=== PATIENT | female | born 1985 | race Caucasian/White ===

== ENCOUNTER 2021-04-05 11:07 | Emergency (ER) | payer MEDICARE, OTHER ==
[~2021-04-05 11:07] MED LIST: BACTROBAN OINT22 GM EXT; BENADRYL 25MG C25 MG PO; BENTYL 10MG CAP10 MG PO; BENTYL 20MG TAB20 MG PO; BUTALB-ACETAMI1 EAC1 PO; CITRATE OF MAG296 ML PO; CITROMA296 ML PO; COLACE 100MG C100 MG PO; CYANOCOBAL1000 MCG/1 INJ; CYCLOBENZAPRINE10 MG PO; CYMBALTA60 MG PO; DEPAKOTE500 MG PO; DETROL LA2 MG PO; EFFEXOR XR75 MG PO; EMGALITY120 MG/1 M SQ; GLUCOPHAGE XR500 M1 PO; GUAIFENESIN DM1 EACH PO; IMODIUM CAP 2 MG2 MG PO; INDERAL TAB 1010 MG PO; LISINOPRIL30 MG PO; LYRICA300 MG PO; MAXALT10 MG PO; MEDROL DOSEPAK 24 MG PO; MEDROL4 MG PO; MIRALAX17 GM PO; PEPCID20 MG PO; PROVENTIL HFA6.7 GM INH; RANITIDINE HCL300 M1 PO; REMERON 15 MG T15 MG PO; REQUIP0.25 MG PO; ROBAXIN 750 MG750 MG PO; SINGULAIR10 MG PO; VALTREX1000 MG PO; VISINE TOTALITY15 ML EYERT; VISTARIL25 MG PO; Viscous lidocaine2% TOP; Voltaren Gel 1 % TOP; ZOFRAN ODT 4 MG4 MG PO; ZOFRAN4 MG PO
[2021-04-05 13:00] LABS: HEMOGLOBIN 9.5 gm/dl (12.3-15.3); RED BLOOD COUNT 4.21 M/UL (4.00-5.10); WHITE BLOOD COUNT 6.7 K/UL (4.5-11.0)
[2021-04-05 15:20] LABS: BUN/CREATININE RATIO 16 (0-10)
== END 2021-04-05 15:43 | disposition home or self-care (01) ==
LOC: ER1 11:07
PROVIDERS: Physician Assistant
DX: R51.9 Headache, unspecified (principal); R42 Dizziness and giddiness; D64.9 Anemia, unspecified; I48.91 Unspecified atrial fibrillation; E11.9 Type 2 diabetes mellitus without complications; F17.210 Nicotine dependence, cigarettes, uncomplicated; Z90.49 Acquired absence of other specified parts of digestive tract
CPT/HCPCS: 80053; 81001; 82550; 82553; 83874; 84484; 85025; 93005; 96372; 99284; J3030

== ENCOUNTER 2021-04-25 11:45 | Emergency (ER) | payer MEDICARE, OTHER ==
[2021-04-25 14:33] LABS: HEMOGLOBIN 11.1 gm/dl (12.3-15.3); RED BLOOD COUNT 4.82 M/UL (4.00-5.10); WHITE BLOOD COUNT 8.2 K/UL (4.5-11.0)
[2021-04-25 14:39] LABS: BUN/CREATININE RATIO 11 (0-10)
== END 2021-04-25 16:37 | disposition home or self-care (01) ==
LOC: ER1 11:45
PROVIDERS: Physician Assistant
DX: R06.2 Wheezing (principal); R10.31 Right lower quadrant pain; J44.9 Chronic obstructive pulmonary disease, unspecified; E11.40 Type 2 diabetes mellitus with diabetic neuropathy, unspecified; Z90.49 Acquired absence of other specified parts of digestive tract; Z88.1 Allergy status to other antibiotic agents; Z88.6 Allergy status to analgesic agent; Z88.8 Allergy status to other drugs, medicaments and biological substances; Z79.899 Other long term (current) drug therapy
CPT/HCPCS: 36415; 80053; 81001; 84703; 85025; 99285

== ENCOUNTER 2021-05-06 11:42 | Emergency (ER) | payer MEDICARE, OTHER | END 2021-05-06 15:21 | disposition home or self-care (01) | LOC: ER1 11:42 | DX: T78.40XA Allergy, unspecified, initial encounter (principal) | CPT/HCPCS: 96372; 99283; J2270; J2550 ==

== ENCOUNTER 2021-05-10 13:15 | Emergency (ER) | payer MEDICARE, OTHER ==
[2021-05-10 13:41] LABS: HEMOGLOBIN 13.3 gm/dl (12.3-15.3); RED BLOOD COUNT 5.11 M/UL (4.00-5.10); WHITE BLOOD COUNT 12.1 K/UL (4.5-11.0)
[2021-05-10 14:06] LABS: BUN/CREATININE RATIO 16 (0-10)
== END 2021-05-10 19:20 | disposition home or self-care (01) ==
LOC: ER1 13:15
PROVIDERS: Physician Assistant
DX: G43.909 Migraine, unspecified, not intractable, without status migrainosus (principal); R19.7 Diarrhea, unspecified; R06.02 Shortness of breath; R07.9 Chest pain, unspecified; Z20.822 Contact with and (suspected) exposure to COVID-19
CPT/HCPCS: 71045; 80053; 81001; 82550; 82553; 83874; 84484; 84703; 85025; 85379; 93005; 99285; J3030; U0002

== ENCOUNTER 2021-05-13 12:43 | Emergency (ER) | payer MEDICARE, OTHER | END 2021-05-13 23:07 | disposition home or self-care (01) | LOC: ER1 12:43 | DX: G43.909 Migraine, unspecified, not intractable, without status migrainosus (principal); J44.9 Chronic obstructive pulmonary disease, unspecified; I25.10 Atherosclerotic heart disease of native coronary artery without angina pectoris; I10 Essential (primary) hypertension; E11.9 Type 2 diabetes mellitus without complications; F17.200 Nicotine dependence, unspecified, uncomplicated | CPT/HCPCS: 70450; 96374; 96375; 99283; J2270; J2550; J2765; J7030 ==

== ENCOUNTER 2021-05-16 08:20 | Emergency (ER) | payer MEDICARE, OTHER ==
[2021-05-16 10:40] LABS: HEMOGLOBIN 12.6 gm/dl (12.3-15.3); RED BLOOD COUNT 4.91 M/UL (4.00-5.10)
[2021-05-16 10:56] LABS: BUN/CREATININE RATIO 18 (0-10)
== END 2021-05-16 12:10 | disposition home or self-care (01) ==
LOC: ER1 08:20
PROVIDERS: Physician Assistant
DX: R51.9 Headache, unspecified (principal); I48.91 Unspecified atrial fibrillation; E11.9 Type 2 diabetes mellitus without complications; I10 Essential (primary) hypertension
CPT/HCPCS: 36415; 80053; 81001; 84703; 85025; 99284

== ENCOUNTER 2021-06-08 10:44 | Emergency (ER) | payer MEDICARE, OTHER | END 2021-06-08 14:30 | disposition home or self-care (01) | LOC: ER1 10:44 | DX: M54.2 Cervicalgia (principal); M54.9 Dorsalgia, unspecified; E11.9 Type 2 diabetes mellitus without complications; I10 Essential (primary) hypertension; Z90.49 Acquired absence of other specified parts of digestive tract; Z88.1 Allergy status to other antibiotic agents; Z88.6 Allergy status to analgesic agent; F17.200 Nicotine dependence, unspecified, uncomplicated | CPT/HCPCS: 96372; 99283; J1100 ==

== ENCOUNTER 2021-10-30 01:11 | Emergency (ER) | payer MEDICARE, MEDICAID ==
[2021-10-30 01:55] LABS: HEMOGLOBIN 12.2 gm/dl (12.3-15.3); RED BLOOD COUNT 4.31 M/UL (4.00-5.10); WHITE BLOOD COUNT 7.2 K/UL (4.5-11.0)
[2021-10-30 02:22] LABS: BUN/CREATININE RATIO 26 (0-10)
[2021-10-30] MEDS ORDERED: DOXYCYCLINE HY100 M2 PO (05:15)
[2021-10-30] MEDS ORDERED: PROAIR DIGIHAL90 MCG INH (05:15)
== END 2021-10-30 06:00 | disposition home or self-care (01) ==
LOC: ER1 01:11
PROVIDERS: Emergency Medicine
DX: R07.89 Other chest pain (principal); I25.10 Atherosclerotic heart disease of native coronary artery without angina pectoris; E11.9 Type 2 diabetes mellitus without complications; F17.200 Nicotine dependence, unspecified, uncomplicated; I50.9 Heart failure, unspecified; K21.9 Gastro-esophageal reflux disease without esophagitis; Z98.84 Bariatric surgery status; Z20.822 Contact with and (suspected) exposure to COVID-19
CPT/HCPCS: 71045; 80048; 80076; 82550; 82553; 83690; 83735; 83874; 84484; 84702; 85025; 85379; 93005; 96374; 96375; 99285; J2270; J2405; Q9967; U0002